=== PATIENT | female | born 1960 | race Caucasian/White ===

== ENCOUNTER → 2019-09-21 13:18 | Outpatient (BNVA) | payer BC, SELFPAY | PROVIDERS: Family Provider Nurse Practitioner Family; PCP Family Medicine; Visit Provider Nurse Practitioner Family | DX: E78.2 Mixed hyperlipidemia (principal); R07.9 Chest pain, unspecified; I10 Essential (primary) hypertension; E03.9 Hypothyroidism, unspecified; E11.9 Type 2 diabetes mellitus without complications; E87.6 Hypokalemia | CPT/HCPCS: 80053; 80061; 83036; 84443; 85025 ==

== ENCOUNTER → 2019-09-30 15:00 | Outpatient (BNVA) | payer BC, SELFPAY | PROVIDERS: Family Provider Nurse Practitioner Family; PCP Family Medicine; Visit Provider Nurse Practitioner Family | DX: J06.9 Acute upper respiratory infection, unspecified (principal); B97.89 Other viral agents as the cause of diseases classified elsewhere; R68.89 Other general symptoms and signs | CPT/HCPCS: 87804 ==

== ENCOUNTER 2019-10-06 09:21 | Outpatient (CLI) | payer BC, SELFPAY ==
[2019-10-06 09:51] VITALS: BP 152/75; PULSE 98
--- NOTE | 2019-10-06 09:51 | ECG_ITS ---
NAME OF STUDY: TREADMILL STRESS TEST INDICATION: Chest Pain, PROCEDURE: At the baseline, the patient's blood pressure was 127/83 with a heart rate of 87/min. The baseline electrocardiogram showed normal sinus rhythm with normal ST-Ts.. The patient exercised for 9 minutes and 38 seconds on a standard Tien protocol. Patient attained a maximum heart rate of 138 beats per minute( 86 % of the maximum predicted heart rate) with a blood pressure at the peak exercise of 169/79 mm Hg. The EKG at the peak exercise revealed no significant changes. Patient did not have any chest pain or any significant cardiac arrhythmias with the exercise During the recovery phase, there were no new changes. Blood pressure at the end of the recovery phase was 152/75 mm Hg with a heart rate of 96 per minute. CONCLUSION: 1. No significant EKG changes with the treadmill exercise 2. No exercise-induced chest pain or cardiac arrhythmia 3. Fair exercise tolerance, attained a maximum of 13.5 METs Electronically Signed On 10-06-2019 22:21:24 ENGLISH LANGUAGE LEARNER TEACHER by Emili Kiser M.D. [id number]
[2019-10-06 09:53] VITALS: BMI 27.0
== END 2019-10-06 09:22 | disposition home or self-care (01) ==
LOC: CDL 09:24
PROVIDERS: Family Provider Nurse Practitioner Family; PCP Nurse Practitioner Family; Visit Provider Nurse Practitioner Family
DX: R07.9 Chest pain, unspecified (principal)
CPT/HCPCS: 93017

== ENCOUNTER → 2019-12-17 10:15 | Outpatient (BNVA) | payer BC, SELFPAY | PROVIDERS: Family Provider Nurse Practitioner Family; PCP Nurse Practitioner Family; Visit Provider Nurse Practitioner Family | DX: N39.0 Urinary tract infection, site not specified (principal); E11.9 Type 2 diabetes mellitus without complications; E03.9 Hypothyroidism, unspecified; R30.0 Dysuria; E87.6 Hypokalemia; I10 Essential (primary) hypertension; E78.2 Mixed hyperlipidemia; B37.3 Candidiasis of vulva and vagina | CPT/HCPCS: 80053; 80061; 81003; 83036; 84443; 85025 ==

== ENCOUNTER → 2019-12-29 10:38 | Outpatient (BNVA) | payer BC, SELFPAY | PROVIDERS: Family Provider Nurse Practitioner Family; PCP Nurse Practitioner Family; Visit Provider Nurse Practitioner Family | DX: N39.0 Urinary tract infection, site not specified (principal); R30.0 Dysuria | CPT/HCPCS: 81000 ==

== ENCOUNTER → 2020-05-05 16:14 | Outpatient (BNVA) | payer BC, SELFPAY | PROVIDERS: Family Provider Nurse Practitioner Family; PCP Nurse Practitioner Family; Visit Provider Nurse Practitioner Family | DX: N39.0 Urinary tract infection, site not specified (principal); H92.02 Otalgia, left ear | CPT/HCPCS: 81000 ==

== ENCOUNTER → 2020-06-01 15:30 | Outpatient (BNVA) | payer BC, SELFPAY | PROVIDERS: Family Provider Nurse Practitioner Family; PCP Nurse Practitioner Family; Visit Provider Nurse Practitioner Family | DX: E11.9 Type 2 diabetes mellitus without complications (principal); E03.9 Hypothyroidism, unspecified; Z12.31 Encounter for screening mammogram for malignant neoplasm of breast | CPT/HCPCS: 80053; 80061; 82043; 83036; 84443; 85025 ==

== ENCOUNTER → 2020-06-20 13:53 | Outpatient (BNVA) | payer BC, SELFPAY | PROVIDERS: Family Provider Nurse Practitioner Family; PCP Nurse Practitioner Family; Visit Provider Nurse Practitioner Family | DX: Z20.828 Contact with and (suspected) exposure to other viral communicable diseases (principal) | CPT/HCPCS: 87635 ==

== ENCOUNTER 2020-07-24 14:41 | Emergency (ER) | payer BC, SELFPAY ==
[2020-07-24 15:17] VITALS: BP 132/80; PULSE 71; RESP 16; TEMP 36.3; O2SAT 97; BMI 25.4
--- NOTE | 2020-07-24 15:32 | CTR_ITS ---
PROCEDURE INFORMATION: Exam: CT Abdomen And Pelvis With Contrast Exam date and time: 07/24/2020 3:55 PM Age: 59 years old Clinical indication: Prior surgery; Surgery date: 6+ months; Surgery type: Gb, hyst; Patient HX: C/O tarry stool and abd cramping; Additional info: Abd pain TECHNIQUE: Imaging protocol: Computed tomography of the abdomen and pelvis with intravenous contrast. Radiation optimization: All CT scans at this facility use at least one of these dose optimization techniques: automated exposure control; mA and/or kV adjustment per patient size (includes targeted exams where dose is matched to clinical indication); or iterative reconstruction. Contrast material: OMNI 300; Contrast volume: 95 ml; Contrast route: INTRAVENOUS (IV); COMPARISON: CT Chest/Abdomen/Pelvis w IV* 10/04/2018 3:12 PM RADIATION DOSE METRICS: Total DLP (mGy-cm): 389.29 FINDINGS: Liver: Normal. No mass. Gallbladder and bile ducts: Cholecystectomy. The bile ducts are normal. Pancreas: Normal. No ductal dilation. Spleen: Normal. No splenomegaly. Adrenal glands: Normal. No mass. Kidneys and ureters: Subcentimeter hypodensities in both kidneys are too small to characterize but most likely are cysts. No follow-up is recommended. No calculus or hydronephrosis. Stomach and bowel: The transverse and distal colon are decompressed. No visible wall thickening. The stomach and small bowel are unremarkable. Appendix: The appendix is not visualized. Intraperitoneal space: Unremarkable. No free air. No significant fluid collection. Vasculature: Unremarkable. No abdominal aortic aneurysm. Lymph nodes: Unremarkable. No enlarged lymph nodes. Urinary bladder: Unremarkable as visualized. Reproductive: The uterus and ovaries are absent. Bones/joints: Chronic bilateral L5 pars fractures with grade 1 anterior subluxation and disc space narrowing. No compression fracture. Soft tissues: Unremarkable. CT/CT abdomen pelvis w con* [id number] IMPRESSION: 1. No acute abnormality identified in the abdomen or pelvis. COMMENTS: Consistent with the [employer]'s Incidental Findings Committee white paper (J Am Pete Radiol 2018): Any incidental renal lesion less than 1 cm or classified as too small to characterize, or any incidental cystic renal lesion characterized as simple-appearing, is likely benign. No follow-up imaging is recommended for these lesions per consensus recommendations based on imaging criteria. Radiation Dose CTDIVOL = (mGy): DLP = 389.29 (mGy-cm)
--- NOTE | 2020-07-24 15:37 | ED_ITS ---
HPI - GI Bleed General: Chief complaint: GI Bleed Stated complaint: BLACK STOOL, LOW BP, LIGHT HEADED Time Seen by Provider: 07/24/20 15:26 Source: patient Mode of arrival: ambulatory Limitations: no limitations History of Present Illness: HPI Narrative: 59-year-old female states 3 hours ago she had a large black tarry stool was concerned she is having a GI bleed. States she took her blood pressure was 106 systolic she had some slight lightheadedness. She had diffuse abdominal pain is been cramping in nature she rates a 5 out of 10. She denies any vomiting or diarrhea. Associated symptoms: Denies abdominal pain, chills, easy bruising, fever(s), headache(s), nausea, rash or vomiting Review of Systems Const: Denies: fever(s), chills, body aches or change in appetite Eyes: Denies: blurry vision or eye discomfort ENMT: Denies: throat pain or dental pain Card: Denies: chest pain Resp: Denies: dyspnea GI: Reports: melena; Denies: abdominal pain, nausea, vomiting or diarrhea : Denies: dysuria Musc: Denies: neck pain or back pain Skin/Breast: Denies: rash Neuro: Denies: headache(s) Psych: Denies: depression Greg/Lymph: Denies: easy bruising All/Imm: Denies: urticaria PFSH ED PFSH: Medical History Acquired hypothyroidism Breast density Diabetes Diabetes mellitus treated with oral medication Essential hypertension Family history of heart disease Hyperlipidemia Hypertension Hypothyroid Microcytosis Mixed hyperlipidemia Multiple gastric ulcers Peptic ulcer Small vessel disease Surgical History History of cholecystectomy History of hysterectomy History of tubal ligation Family History Mother Diabetes Heart disease Father Diabetes Heart disease Social History Smoking and tobacco status: former smoker Quit status (tobacco): has quit using tobacco Year quit tobacco: 1999 Former quit date comment: smoked ppd x 5 Second hand smoke exposure: No Alcohol intake: former Lives independently: Yes Household members: spouse Marital status: service: No Current occupational status: employed Current occupation: [employer] History of recent travel: No Current gender identity: Female Physical Exam Const: COMMON NORMALS: no acute distress, patient oriented x3 and healthy appearing HENMT: COMMON NORMALS: normocephalic and atraumatic HEAD & SCALP: normocephalic and atraumatic Eye: COMMON NORMALS: Equal, round and reactive pupils present and EOMs intact bilaterally PUPIL: Yes Equal, round and reactive pupils present Neck/C-Spine: COMMON NORMALS: full ROM and supple Chest: COMMONS NORMALS: normal inspection of the chest and normal palpation of entire chest wall Resp: COMMON NORMALS: normal respiratory effort, No retractions, No use of accessory muscles and clear to auscultation bilaterally AUSCULTATION: clear to auscultation bilaterally Cardio: COMMON NORMALS: regular rate, regular rhythm and No murmurs present (Cardio) RATE: regular rate RHYTHM: regular rhythm GI: COMMON NORMALS: Normal to inspection, nondistended, normoactive bowel sounds present, Soft to palpation, non-tender and no masses PALPATION: Yes Soft to palpation RECTAL EXAM: No heme positive stool OTHER: Rectal exam negative with Hemoccult negative stool Extremity: COMMON NORMALS: normal to inspection and full ROM Neuro: COMMON NORMALS: patient oriented x3, moves all extremities and no focal motor deficits Psych: COMMON NORMALS: mental status grossly normal, Normal thought process present and cooperative THOUGHT PROCESS: Normal thought process present Skin: COMMON NORMALS: no rashes or lesions noted and no wounds GENERAL SKIN EXAM: no rashes or lesions noted Course Vital Signs: Vital signs: Vital Signs Temperature 97.4 F L 07/24/20 15:17 Pulse Rate 70 07/24/20 17:23 Respiratory Rate 15 07/24/20 17:23 Blood Pressure 116/86 07/24/20 17:23 Pulse Oximetry 99 07/24/20 17:23 MDM - GI Bleed MDM Narrative: Medical decision making narrative: Patient presents here with a possible GI bleed. Patient's vital signs here been normal and CT scans normal and her hemoglobin here is normal as well. Her initial rectal exam here showed brown stool that is Hemoccult negative. While patient was here she had a bowel movement and states she thought it was dark again I did another rectal exam immediately after that showed brown stool again and was Hemoccult negative again. She had flushed her about down the stool so was unable to do a Hemoccult on that. She has been stable while here. She is not been symptomatic when she stands up. Had a long discussion with her and I feel she is stable for discharge. She is to follow-up with PCP in 2 to 4 days. I informed her if she has any more bloody stools or feels lightheaded she is to return immediately. She understands and agrees to this plan. Lab Data: Labs: Lab Results 07/24/20 07/24/20 07/24/20 Range/Units 15:37 15:37 15:37 WBC 7.8 (4.0-10.0) 10^3/ uL RBC 5.22 (4.1-5.3) 10^6/u L Hgb 13.3 (11.5-15.3) g/dL Hct 42.8 (37.0-47.0) % MCV 82.0 (81-99) fL MCH 25.5 L (28.0-34.0) pg MCHC 31.1 (30.0-36.0) g/dL RDW 14.8 (12.1-15.1) % Plt Count 292 (130-400) 10^3/c mm MPV 10.4 (7.4-10.4) fL Neut % (Auto) 66.9 % Lymph % (Auto) 27.9 % Burleigh % (Auto) 4.6 % Eos % (Auto) 0.0 % Baso % (Auto) 0.3 % Neut # (Auto) 5.20 (1.8-7.7) 10^3/u L Lymph # (Auto) 2.2 (0.8-4.8) 10^3/u L Burleigh # (Auto) 0.4 (0.2-0.9) 10^3/u L Eos # (Auto) 0.0 (0.0-0.8) 10^3/u L Baso # (Auto) 0.0 (0.0-0.1) 10^3/u L Nucleated RBC % (a uto) 0 % Nucleated RBCs # 0.0 /100WBC PT 12.90 (12.1-14.9) SECO NDS INR 0.94 (0.8-1.2) Sodium 141 (136-145) mmol/L Potassium 3.9 (3.5-5.1) mmol/L Chloride 103 (98-107) mmol/L Carbon Dioxide 27 (22-29) mmol/L Anion Gap 14.9 (5-19) BUN 11 (8-23) mg/dL Creatinine 0.5 (0.5-0.9) mg/dL GFR Calculation 125.9 (90-130) mL/min Glucose 105 (65-115) mg/dL Calculated Osmolal ity 292 (285-295) mOsm/k g Calcium 9.8 (8.5-10.5) mg/dL Total Bilirubin 0.3 (0.15-1.2) mg/dL AST 27 (0-32) U/L ALT 40 H (0-33) U/L Alkaline Phosphata se 92 (35-105) IU/L Total Protein 7.2 (6.6-8.7) g/dL Albumin 4.6 (3.5-5.2) g/dL Globulin 2.6 (1.3-4.6) g/dL Urine Color (Yellow) Urine Appearance (CLEAR) Urine pH (5-7) Ur Specific Gravit y (1.005-1.030) Urine Protein (Negative) Urine Glucose (UA) (Normal) Urine Ketones (Negative) Urine Blood (Negative) Urine Nitrate (Negative) Urine Bilirubin (Negative) Urine Urobilinogen (Negative) mg/dL Ur Leukocyte Renetta ase (Negative) 07/24/20 Range/Units 16:06 WBC (4.0-10.0) 10^3/ uL RBC (4.1-5.3) 10^6/u L Hgb (11.5-15.3) g/dL Hct (37.0-47.0) % MCV (81-99) fL MCH (28.0-34.0) pg MCHC (30.0-36.0) g/dL RDW (12.1-15.1) % Plt Count (130-400) 10^3/c mm MPV (7.4-10.4) fL Neut % (Auto) % Lymph % (Auto) % Burleigh % (Auto) % Eos % (Auto) % Baso % (Auto) % Neut # (Auto) (1.8-7.7) 10^3/u L Lymph # (Auto) (0.8-4.8) 10^3/u L Burleigh # (Auto) (0.2-0.9) 10^3/u L Eos # (Auto) (0.0-0.8) 10^3/u L Baso # (Auto) (0.0-0.1) 10^3/u L Nucleated RBC % (a uto) % Nucleated RBCs # /100WBC PT (12.1-14.9) SECO NDS INR (0.8-1.2) Sodium (136-145) mmol/L Potassium (3.5-5.1) mmol/L Chloride (98-107) mmol/L Carbon Dioxide (22-29) mmol/L Anion Gap (5-19) BUN (8-23) mg/dL Creatinine (0.5-0.9) mg/dL GFR Calculation (90-130) mL/min Glucose (65-115) mg/dL Calculated Osmolal ity (285-295) mOsm/k g Calcium (8.5-10.5) mg/dL Total Bilirubin (0.15-1.2) mg/dL AST (0-32) U/L ALT (0-33) U/L Alkaline Phosphata se (35-105) IU/L Total Protein (6.6-8.7) g/dL Albumin (3.5-5.2) g/dL Globulin (1.3-4.6) g/dL Urine Color Yellow (Yellow) Urine Appearance Clear (CLEAR) Urine pH 5 (5-7) Ur Specific Gravit y 1.015 (1.005-1.030) Urine Protein Neg (Negative) Urine Glucose (UA) Norm (Normal) Urine Ketones Negative (Negative) Urine Blood Neg (Negative) Urine Nitrate Negative (Negative) Urine Bilirubin Neg (Negative) Urine Urobilinogen Neg (Negative) mg/dL Ur Leukocyte Renetta ase Negative (Negative) Imaging Data^: CT Abd/Pel: Radiologist's impression: [address] [address] [address] Scan Report Signed Patient: Lou Garcia Unit #: [id number] : 1960 Age/Sex: 59 / F ADM Date: 07/24/20 Loc: ER Room/Bed: Attending Dr: Ordering Provider/Ordering MD: Aidan Quarles MD Date of Service: 07/24/20 Procedure(s): CT abdomen pelvis w con* [id number] Accession Number(s): [id number] Report Number: [id number] PROCEDURE INFORMATION: Exam: CT Abdomen And Pelvis With Contrast Exam date and time: 07/24/2020 3:55 PM Age: 59 years old Clinical indication: Prior surgery; Surgery date: 6+ months; Surgery type: Gb, hyst; Patient HX: C/O tarry stool and abd cramping; Additional info: Abd pain TECHNIQUE: Imaging protocol: Computed tomography of the abdomen and pelvis with intravenous contrast. Radiation optimization: All CT scans at this facility use at least one of these dose optimization techniques: automated exposure control; mA and/or kV adjustment per patient size (includes targeted exams where dose is matched to clinical indication); or iterative reconstruction. Contrast material: OMNI 300; Contrast volume: 95 ml; Contrast route: INTRAVENOUS (IV); COMPARISON: CT Chest/Abdomen/Pelvis w IV* 10/04/2018 3:12 PM RADIATION DOSE METRICS: Total DLP (mGy-cm): 389.29 FINDINGS: Liver: Normal. No mass. Gallbladder and bile ducts: Cholecystectomy. The bile ducts are normal. Pancreas: Normal. No ductal dilation. Spleen: Normal. No splenomegaly. Adrenal glands: Normal. No mass. Kidneys and ureters: Subcentimeter hypodensities in both kidneys are too small to characterize but most likely are cysts. No follow-up is recommended. No calculus or hydronephrosis. Stomach and bowel: The transverse and distal colon are decompressed. No visible wall thickening. The stomach and small bowel are unremarkable. Appendix: The appendix is not visualized. Intraperitoneal space: Unremarkable. No free air. No significant fluid collection. Vasculature: Unremarkable. No abdominal aortic aneurysm. Lymph nodes: Unremarkable. No enlarged lymph nodes. Urinary bladder: Unremarkable as visualized. Reproductive: The uterus and ovaries are absent. Bones/joints: Chronic bilateral L5 pars fractures with grade 1 anterior subluxation and disc space narrowing. No compression fracture. Soft tissues: Unremarkable. CT/CT abdomen pelvis w con* [id number] IMPRESSION: 1. No acute abnormality identified in the abdomen or pelvis. Discharge Plan Discharge Patient Disposition: Home Clinical Impression: GI bleed Qualifiers: GI bleed type/associated pathology: unspecified gastrointestinal hemorrhage type Qualified Code(s): K92.2 - Gastrointestinal hemorrhage, unspecified Condition: Stable Prescriptions: No Action metformin 1,000 mg tablet 1,000 mg PO BID Qty: 180 RF: 1 aspirin [Adult Aspirin Regimen] 81 mg tablet,delayed release (DR/EC) 81 mg PO DAILY RF: 0 omega-3 fatty acids [Fish Oil Concentrate] 1,000 mg capsule 1,000 mg PO DAILY RF: 0 epinephrine [EpiPen] 0.3 mg/0.3 mL auto-injector 0.3 mg IM ONCE PRN (Reason: anaphylaxis) Qty: 2 RF: 1 (DME) blood-glucose meter Kit See Rx Instructions .ROUTE .MEDSUPPLY Qty: 1 RF: 0 (DME) Blood Glucose Test Strip See Rx Instructions .ROUTE .MEDSUPPLY Qty: 100 RF: 4 lisinopril 20 mg tablet See Rx Instructions .ROUTE .COMPLEX Qty: 90 RF: 1 potassium chloride 20 mEq tablet,ER particles/crystals See Rx Instructions .ROUTE .COMPLEX Qty: 90 RF: 1 atorvastatin 10 mg tablet 10 mg PO DAILY Qty: 90 RF: 1 amlodipine 10 mg tablet 10 mg PO DAILY Qty: 90 RF: 1 levothyroxine 100 mcg tablet See Rx Instructions .ROUTE .COMPLEX Qty: 90 RF: 1 glyburide 5 mg tablet 5 mg PO BID 90 Days Qty: 180 RF: 1 Discharge Orders: Discharge Order (Routine); Ordered 07/24/20 Ordered By: Aidan Quarles Referrals: Elisa Swan APN [Family Provider] - Kristina Colmenares FNP [Primary Care Provider] - Discharge Diet: Advance as tolerated Discharge Activity: Resume usual activity Patient Instructions: Gastrointestinal Bleeding (ED) Discharge Date/Time: 07/24/20 17:23 Coding Level of Care Code ED Restrictive Preparation Operator for Abdelrahman Fwd Exam Comprehensive
[2020-07-24 15:43] LABS: Basophils % 0.3 %; Hematocrit 42.8 % (37.0-47.0); Hemoglobin 13.3 g/dL (11.5-15.3); Lymphocytes # 2.2 10^3/uL (0.8-4.8); Lymphocytes % 27.9 %; Mean Corpuscular HGB Conc 31.1 g/dL (30.0-36.0); Mean Corpuscular Hemoglobin 25.5 pg (28.0-34.0); Mean Platelet Volume 10.4 fL (7.4-10.4); Monocytes # 0.4 10^3/uL (0.2-0.9); Monocytes % 4.6 %; Neutrophils % 66.9 %; Nucleated Red Blood Cells % 0 %; Platelet Count 292 10^3/cmm (130-400); Red Blood Count 5.22 10^6/uL (4.1-5.3); Red Cell Distribution Width 14.8 % (12.1-15.1); White Blood Count 7.8 10^3/uL (4.0-10.0)
[2020-07-24 16:01] LABS: Alanine Aminotransferase 40 U/L (0-33); Albumin Level 4.6 g/dL (3.5-5.2); Alkaline Phosphatase 92 IU/L (35-105); Anion Gap 14.9 (5-19); Aspartate Amino Transferase 27 U/L (0-32); Blood Urea Nitrogen 11 mg/dL (8-23); Calcium 9.8 mg/dL (8.5-10.5); Carbon Dioxide 27 mmol/L (22-29); Chloride 103 mmol/L (98-107); Creatinine Clr Calc Pharmacy 107.9557; Globulin 2.6 g/dL (1.3-4.6); Glomerular Filtration Rate 125.9 mL/min (90-130); Glucose 105 mg/dL (65-115); Osmolality Calculated 292 mOsm/kg (285-295); Potassium 3.9 mmol/L (3.5-5.1); Sodium 141 mmol/L (136-145); Total Bilirubin 0.3 mg/dL (0.15-1.2); Total Protein 7.2 g/dL (6.6-8.7)
--- NOTE | 2020-07-24 16:03 | PC.NURSE ---
Patient to restroom. Patient will attempt to collect urine.
[2020-07-24 16:31] LABS: Add Urine Microscopic? NO
[2020-07-24] MEDS: iohexol 300 mg/mL 100 mL Btl IV (16:46)
[2020-07-24 16:49] LABS: INR 0.94 (0.8-1.2)
[2020-07-24 16:53] LABS: Bilirubin Urine Neg (Negative); Blood Urine Neg (Negative); Glucose Urine UA Norm (Normal); Ketones Urine Negative (Negative); Leukocyte Esterase Urine Negative (Negative); Nitrate Urine Negative (Negative); Protein Urine Neg (Negative); Specific Gravity, Urine 1.015 (1.005-1.030); Urine Appearance Clear (CLEAR); Urine Color Yellow (Yellow); Urobilinogen Urine Neg (Negative); pH Urine 5 (5-7)
--- NOTE | 2020-07-24 17:04 | PC.NURSE ---
Read and agree with assessment.
[2020-07-24 17:23] VITALS: BP 116/86; PULSE 70; RESP 15; O2SAT 99
== END 2020-07-24 17:23 | disposition home or self-care (01) ==
PROVIDERS: Emergency Provider Emergency Medicine; Family Provider Nurse Practitioner Family; PCP Nurse Practitioner Family
DX: K92.2 Gastrointestinal hemorrhage, unspecified (principal); Z79.82 Long term (current) use of aspirin; E11.9 Type 2 diabetes mellitus without complications; I10 Essential (primary) hypertension; E78.2 Mixed hyperlipidemia; Z87.891 Personal history of nicotine dependence
CPT/HCPCS: 12345; 74177; 80053; 81003; 85025; 85610; 99283; Q9967

== ENCOUNTER 2020-08-10 14:44 | Outpatient (CLI) | payer BC, SELFPAY ==
--- NOTE | 2020-08-10 15:00 | MM_ITS ---
WS: [id number] SCREENING DIGITAL MAMMOGRAM WITH CAD HISTORY: screening mammo COMPARISON: 10/31/2018, 04/24/2017 and 04/03/2017 Bilateral CC and MLO views submitted. Computer aided detection analyzed. Breast composition: There are scattered areas of fibroglandular density. Ovoid irregular shaped 7 millimeter density in the central RIGHT breast. I suspect this is at 12:00. Additional imaging is necessary. Otherwise no interval suspicious changes. MM/[place] [id number] IMPRESSION: BI-RADS: 0-Incomplete: Need additional imaging evaluation FOLLOW UP: Need Additional Imaging RIGHT breast: Spot compression views (CC and MLO). True ML. Ultrasound to follo w if abnormality persists.
== END 2020-08-10 14:45 | disposition home or self-care (01) ==
LOC: RADSHAW 14:48
PROVIDERS: PCP Nurse Practitioner Family; Visit Provider Nurse Practitioner Family
DX: Z12.31 Encounter for screening mammogram for malignant neoplasm of breast (principal); N64.89 Other specified disorders of breast
CPT/HCPCS: 77067

== ENCOUNTER 2020-08-23 10:42 | Outpatient (CLI) | payer BC, SELFPAY ==
--- NOTE | 2020-08-23 11:00 | MM_ITS ---
WS: [id number] ADDITIONAL VIEWS RIGHT BREAST RIGHT breast ultrasound, limited HISTORY: R92.8 - Other abnormal and inconclusive findings on diagnostic imaging of breast COMPARISON: 08/10/2020, 10/31/2018, 04/03/2017 Compression views right CC and MLO projection. True ML also submitted. 8 mm nodule persists central to the nipple on the CC projection. Not visualized on the RIGHT MLO. Thi s may be superimposed fibroglandular densities. RIGHT breast ultrasound, limited. There is no detectable abnormality at 12:00 corresponds to a mammographic abnormality. There is a sma ll cluster of cysts or lymph nodes at 7:00 in the RIGHT breast. MM/[place] [id number] IMPRESSION: BI-RADS: 3-Probably Benign FOLLOW-UP: 6 Month Follow-up Recommend diagnostic RIGHT mammogram follow-up in 6 months. The asymmetry in th e central RIGHT breast needs further evaluation. As this cannot be identified b y ultrasound or definitely on the lateral projection 6 month follow-up is recom mended.
--- NOTE | 2020-08-23 11:30 | US_ITS ---
WS: [id number] ADDITIONAL VIEWS RIGHT BREAST RIGHT breast ultrasound, limited HISTORY: R92.8 - Other abnormal and inconclusive findings on diagnostic imaging of breast COMPARISON: 08/10/2020, 10/31/2018, 04/03/2017 Compression views right CC and MLO projection. True ML also submitted. 8 mm nodule persists central to the nipple on the CC projection. Not visualized on the RIGHT MLO. Thi s may be superimposed fibroglandular densities. RIGHT breast ultrasound, limited. There is no detectable abnormality at 12:00 corresponds to a mammographic abnormality. There is a sma ll cluster of cysts or lymph nodes at 7:00 in the RIGHT breast. US/US breast RT limited* [id number] IMPRESSION: BI-RADS: 3-Probably Benign FOLLOW-UP: 6 Month Follow-up Recommend diagnostic RIGHT mammogram follow-up in 6 months. The asymmetry in th e central RIGHT breast needs further evaluation. As this cannot be identified b y ultrasound or definitely on the lateral projection 6 month follow-up is recom mended.
== END 2020-08-23 10:43 | disposition home or self-care (01) ==
LOC: RADSHAW 10:45
PROVIDERS: PCP Nurse Practitioner Family; Visit Provider Nurse Practitioner Family
DX: R92.8 Other abnormal and inconclusive findings on diagnostic imaging of breast (principal); N64.89 Other specified disorders of breast
CPT/HCPCS: 76642; 77065

== ENCOUNTER → 2020-12-14 16:46 | Outpatient (BNVA) | payer BC, SELFPAY | PROVIDERS: PCP Nurse Practitioner Family; Visit Provider Nurse Practitioner Family | DX: I10 Essential (primary) hypertension (principal); E11.9 Type 2 diabetes mellitus without complications; Z91.030 Bee allergy status; E03.9 Hypothyroidism, unspecified; E87.6 Hypokalemia; E78.2 Mixed hyperlipidemia | CPT/HCPCS: 80053; 80061; 83036; 84443; 85025 ==

== ENCOUNTER → 2021-04-24 17:03 | Outpatient (BNVA) | payer BC, SELFPAY | PROVIDERS: PCP Nurse Practitioner Family; Visit Provider Family Medicine | DX: R10.30 Lower abdominal pain, unspecified (principal); N39.0 Urinary tract infection, site not specified; R31.9 Hematuria, unspecified; R10.9 Unspecified abdominal pain | CPT/HCPCS: 81003 ==

== ENCOUNTER → 2021-07-04 11:14 | Outpatient (BNVA) | payer BC, SELFPAY | PROVIDERS: PCP Nurse Practitioner Family; Visit Provider Nurse Practitioner Family | DX: I10 Essential (primary) hypertension (principal); E11.9 Type 2 diabetes mellitus without complications; E03.9 Hypothyroidism, unspecified; E87.6 Hypokalemia; E78.2 Mixed hyperlipidemia | CPT/HCPCS: 80053; 80061; 82043; 83036; 84443; 85025 ==

== ENCOUNTER → 2021-08-17 14:01 | Outpatient (BNVA) | payer BC, SELFPAY | PROVIDERS: PCP Nurse Practitioner Family; Visit Provider Nurse Practitioner Family | DX: N39.0 Urinary tract infection, site not specified (principal); R31.9 Hematuria, unspecified; B37.3 Candidiasis of vulva and vagina | CPT/HCPCS: 81003 ==

== ENCOUNTER 2021-09-26 15:13 | Outpatient (REF) | payer OTHER, SELFPAY ==
[2021-09-26 15:46] LABS: Hepatitis B Surface AB 135.1 (11.5-1000); Rubella IgG 171.9 IU/mL (0.0-10.0)
[2021-09-27 12:38] LABS: Rubeola Antibody IGG >300.00 AU/mL
[2021-09-28 13:47] LABS: Quantiferon Mitogen >10.00 IU/mL; Quantiferon Nil 0.04 IU/mL; Quantiferon Plus TB1 0.95 IU/mL; Quantiferon Plus TB2 0.39 IU/mL; Quantiferon TB Gold POSITIVE (NEGATIVE)
== END 2021-09-26 15:14 | disposition home or self-care (01) ==
LOC: LAB 15:13
DX: Z01.89 Encounter for other specified special examinations (principal)
CPT/HCPCS: 86480; 86706; 86735; 86762; 86765; 86787

== ENCOUNTER 2021-11-01 07:07 | Outpatient (CLI) | payer OTHER, SELFPAY ==
--- NOTE | 2021-11-01 07:14 | XR_ITS ---
WS: [id number] CHEST 2 VIEWS HISTORY: POSITIVE TB TEST COMPARISON: 08/22/2019 Lungs: Similar appearance to the lungs as the prior study of 08/22/2019. No pneumonia. Normal vasculat ure. No effusion. Cardiac size: Normal. Mediastinum/Aorta: Mild atherosclerosis aorta. Bones: Normal. Surgical clips are noted overlying the RIGHT abdomen. XR/XR chest 2V* [id number] IMPRESSION: 1. No acute cardiopulmonary disease. Stable chest radiograph since 08/22/2019. 2. Mild atherosclerosis aorta.
== END 2021-11-01 07:08 | disposition home or self-care (01) ==
LOC: RAD 07:09
PROVIDERS: PCP Nurse Practitioner Family; Visit Provider Family Medicine
DX: R76.12 Nonspecific reaction to cell mediated immunity measurement of gamma interferon antigen response without active tuberculosis (principal); I70.0 Atherosclerosis of aorta
CPT/HCPCS: 71046

== ENCOUNTER → 2021-11-28 11:33 | Outpatient (BNVA) | payer OTHER, SELFPAY | PROVIDERS: PCP Nurse Practitioner Family; Visit Provider Family Medicine | DX: E03.9 Hypothyroidism, unspecified (principal); E78.2 Mixed hyperlipidemia; I10 Essential (primary) hypertension; E11.9 Type 2 diabetes mellitus without complications; L30.9 Dermatitis, unspecified | CPT/HCPCS: 80053; 80061; 83036; 84443; 85025 ==

== ENCOUNTER → 2022-04-24 08:59 | Outpatient (BNVA) | payer OTHER, SELFPAY | PROVIDERS: PCP Family Medicine Adult Medicine; Visit Provider Family Medicine Adult Medicine | DX: Z00.00 Encounter for general adult medical examination without abnormal findings (principal); N39.0 Urinary tract infection, site not specified; Z23 Encounter for immunization | CPT/HCPCS: 81000 ==

== ENCOUNTER → 2022-05-07 12:14 | Outpatient (BNVA) | payer OTHER, SELFPAY | PROVIDERS: PCP Family Medicine Adult Medicine; Visit Provider Registered Nurse Neonatal Intensive Care | DX: N39.0 Urinary tract infection, site not specified (principal); R30.0 Dysuria; R39.9 Unspecified symptoms and signs involving the genitourinary system; B37.2 Candidiasis of skin and nail | CPT/HCPCS: 81000; 87077; 87086; 87184 ==

== ENCOUNTER → 2022-05-21 13:45 | Outpatient (BNVA) | payer OTHER, SELFPAY | PROVIDERS: PCP Family Medicine Adult Medicine; Visit Provider Registered Nurse Neonatal Intensive Care | DX: N39.0 Urinary tract infection, site not specified (principal); R35.0 Frequency of micturition | CPT/HCPCS: 81000 ==

== ENCOUNTER → 2022-05-29 08:55 | Outpatient (BNVA) | payer SELFPAY | PROVIDERS: PCP Family Medicine Adult Medicine; Visit Provider Dermatology | DX: Z01.89 Encounter for other specified special examinations (principal) ==

== ENCOUNTER 2022-08-23 09:13 | Outpatient (CLI) | payer OTHER, SELFPAY ==
--- NOTE | 2022-08-23 09:27 | MM_ITS ---
WS: [id number] SCREENING DIGITAL BREAST TOMOSYNTHESIS MAMMOGRAM WITH CAD HISTORY: Screening exam. COMPARISON: 08/10/2020, 10/31/2018 Bilateral CC and MLO with tomosynthesis and synthetic mammography submitted. Computer aided detection analyzed. Breast composition: There are scattered areas of fibroglandular density. 5 mm hyperdense nodule in the posterior medial inferior LEFT breast. The remaining asymmetries are st able. No grouping of calcification. MM/[place] [id number] IMPRESSION: BI-RADS: 0-Incomplete: Need additional imaging evaluation FOLLOW UP: Need Additional Imaging LEFT breast: Spot compression views (CC and MLO). True ML. Ultrasound to follow if abnormality persists.
== END 2022-08-23 09:14 | disposition home or self-care (01) ==
LOC: RAD 09:15
PROVIDERS: PCP Family Medicine Adult Medicine; Visit Provider Family Medicine Adult Medicine
DX: Z12.31 Encounter for screening mammogram for malignant neoplasm of breast (principal)
CPT/HCPCS: 77063; 77067

== ENCOUNTER → 2022-08-28 09:34 | Outpatient (BNVA) | payer SELFPAY | PROVIDERS: PCP Family Medicine Adult Medicine; Visit Provider Dermatology | DX: Z01.89 Encounter for other specified special examinations (principal) ==

== ENCOUNTER 2022-08-29 18:27 | Emergency (ER) | payer OTHER, SELFPAY ==
--- NOTE | 2022-08-29 18:28 | XRR_ITS ---
PROCEDURE INFORMATION: Exam: XR Chest Exam date and time: 08/29/2022 6:34 PM Age: 62 years old Clinical indication: Shortness of breath; Additional info: SOB TECHNIQUE: Imaging protocol: Radiologic exam of the chest. Views: 1 view. COMPARISON: CR XR chest 2V* [id number] 11/01/2021 7:27 AM FINDINGS: Lungs: Shallow inspiration with mild pulmonary parenchymal crowding. No consolidation. Pleural spaces: Unremarkable. No pleural effusion. No pneumothorax. Heart/Mediastinum: Unremarkable. No cardiomegaly. Bones/joints: Unremarkable. Intraperitoneal space: Clips in the right upper abdomen. XR/XR chest 1V portable [id number] IMPRESSION: No acute findings.
--- NOTE | 2022-08-29 18:36 | ECG_ITS ---
[facility] Test Date: 2022-08-29 Pat Name: Lou Garcia Department: Room: Gender: Female Customs Inspector: : 1960 Requested By: Aidan Quarles Order Number: [id number] Mohit MD: Dmitry Felipe M.D. Measurements Intervals Bowden Rate: 76 P: 25 SD: 199 QRS: 22 QRSD: 102 T: 59 QT: 381 QTc: 431 Interpretive Statements SINUS RHYTHM Compared to ECG 08/22/2019 16:29:47 T-wave abnormality no longer present Electronically Signed On 08-31-2022 13:51:11 MANAGER EXPRESS by Dmitry Felipe M.D. [id number]
--- NOTE | 2022-08-29 18:36 | PC.NURSE ---
pt bgl is [address] misael holliday.
[2022-08-29 18:47] VITALS: BP 105/62; PULSE 76; RESP 15; TEMP 36.7; O2SAT 93; BMI 25.4
--- NOTE | 2022-08-29 18:49 | W.ED.SYNCOPE ---
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 She states she started to feel improved she is a diabetic and she states she has not eaten much throughout the day her blood glucose here is normal though she denies any chest pain denies any head pain. Associated symptoms: Deny abdominal pain, fever(s), headache(s) or nausea Review of Systems Const: Denies: fever(s), chills, body aches or change in appetite Eyes: Denies: blurry vision or eye discomfort ENMT: Denies: throat pain or dental pain Card: Reports: syncope Resp: Denies: dyspnea GI: Denies: abdominal pain, nausea, vomiting or diarrhea : Denies: dysuria Musc: Denies: neck pain or back pain Skin/Breast: Denies: rash Neuro: Denies: headache(s) Psych: Denies: depression Greg/Lymph: Denies: easy bruising All/Imm: Denies: urticaria PFSH ED PFSH: Medical History Allergic to bees Family history of heart disease Healthcare maintenance Hyperlipidemia Hypertension Hypothyroid Mixed hyperlipidemia Nocturnal leg cramps PUD (peptic ulcer disease) Gastric and peptic ulcer 05/05/2020. Small vessel disease Vulval candidiasis Surgical History History of cholecystectomy History of hysterectomy History of tubal ligation Family History Mother Diabetes Heart disease Father Diabetes Heart disease Social History Quit status (tobacco): has quit using tobacco Year quit tobacco: 1999 Former quit date comment: smoked ppd x 5 Second hand smoke exposure: No Alcohol intake: former Lives independently: Yes Household members: spouse Marital status: service: No Current occupational status: employed Current occupation: [employer] History of recent travel: No Current gender identity: Female Physical Exam Const: COMMON NORMALS: no acute distress, patient oriented x3 and healthy appearing HENMT: COMMON NORMALS: normocephalic and atraumatic HEAD & SCALP: normocephalic and atraumatic Eye: COMMON NORMALS: Equal, round and reactive pupils present and EOMs intact bilaterally PUPIL: Yes Equal, round and reactive pupils present Neck/C-Spine: COMMON NORMALS: full ROM and supple Chest: COMMONS NORMALS: normal inspection of the chest and normal palpation of entire chest wall Resp: COMMON NORMALS: normal respiratory effort, No retractions, No use of accessory muscles and clear to auscultation bilaterally AUSCULTATION: clear to auscultation bilaterally Cardio: COMMON NORMALS: regular rate, regular rhythm and No murmurs present (Cardio) RATE: regular rate RHYTHM: regular rhythm GI: COMMON NORMALS: Normal to inspection, nondistended, normoactive bowel sounds present, Soft to palpation, non-tender and no masses PALPATION: Yes Soft to palpation Extremity: COMMON NORMALS: normal to inspection and full ROM Neuro: COMMON NORMALS: patient oriented x3, moves all extremities and no focal motor deficits Psych: COMMON NORMALS: mental status grossly normal, Normal thought process present and cooperative THOUGHT PROCESS: Normal thought process present Skin: COMMON NORMALS: no rashes or lesions noted and no wounds GENERAL SKIN EXAM: no rashes or lesions noted Course Vital Signs: Vital signs: Vital Signs Temperature 98.1 F 08/29/22 18:47 Pulse Rate 76 08/29/22 18:56 Respiratory Rate 16 08/29/22 18:56 Blood Pressure 105/62 08/29/22 18:47 Pulse Oximetry 90 08/29/22 18:56 Oxygen Delivery Me thod 08/29/22 18:56 MDM - Syncope Medical Decision Making Patient presents here with a syncopal event likely a vagal episode. Patient is well-appearing here lab work x-ray and EKG are normal patient stable for discharge she is return if worsening she understands agrees to plan. Lab Data 08/29/22 19:00 08/29/22 19:00 Radiology Impressions Chest X-Ray 08/29/22 18:28 IMPRESSION: No acute findings. Laboratory Results WBC 14.6 10^3/uL (4.0-10.0) H 08/29/22 19:00 RBC 4.54 10^6/uL (4.1-5.3) 08/29/22 19:00 Hgb 11.7 g/dL (11.5-15.3) 08/29/22 19:00 Hct 37.0 % (37.0-47.0) 08/29/22 19:00 MCV 81.5 fl (81-99) 08/29/22 19:00 MCH 25.8 pg (28.0-34.0) L 08/29/22 19:00 MCHC 31.6 g/dL (30.0-36.0) 08/29/22 19:00 RDW 14.9 % (12.1-15.1) 08/29/22 19:00 Plt Count 384 10^3/cmm (130-400) 08/29/22 19:00 MPV 9.1 fL (7.4-10.4) 08/29/22 19:00 Neut % (Auto) 92.3 % 08/29/22 19:00 Lymph % (Auto) 4.2 % 08/29/22 19:00 Bullitt % (Auto) 3.1 % 08/29/22 19:00 Eos % (Auto) 0.0 % 08/29/22 19:00 Baso % (Auto) 0.1 % 08/29/22 19:00 Neut # (Auto) 13.51 10^3/uL (1.8-7.7) H 08/29/22 19:00 Lymph # (Auto) 0.6 10^3/uL (0.8-4.8) L 08/29/22 19:00 Bullitt # (Auto) 0.5 10^3/uL (0.2-0.9) 08/29/22 19:00 Eos # (Auto) 0.0 10^3/uL (0.0-0.8) 08/29/22 19:00 Baso # (Auto) 0.0 10^3/uL (0.0-0.1) 08/29/22 19:00 Nucleated RBC % (auto) 0 % 08/29/22 19:00 Nucleated RBCs # 0.0 /100WBC 08/29/22 19:00 Sodium 136 mmol/L (136-145) 08/29/22 19:00 Potassium 3.6 mmol/L (3.5-5.1) 08/29/22 19:00 Chloride 98 mmol/L (98-107) 08/29/22 19:00 Carbon Dioxide 25 mmol/L (22-29) 08/29/22 19:00 Anion Gap 16.6 (5-19) 08/29/22 19:00 BUN 15 mg/dL (8-23) 08/29/22 19:00 Creatinine 0.7 mg/dL (0.5-0.9) 08/29/22 19:00 GFR Calculation 84.5 mL/min (90-130) L 08/29/22 19:00 Glucose 235 mg/dL (65-115) H 08/29/22 19:00 POC Glucose 232 mg/dL (70-110) H 08/29/22 19:06 Calculated Osmolality 290 mOsm/kg (285-295) 08/29/22 19:00 Calcium 9.3 mg/dL (8.5-10.5) 08/29/22 19:00 Total Bilirubin 0.4 mg/dL (0.15-1.2) 08/29/22 19:00 AST 11 U/L (0-32) 08/29/22 19:00 ALT 14 U/L (0-33) 08/29/22 19:00 Alkaline Phosphatase 86 U/L (35-105) 08/29/22 19:00 Troponin T Baseline 6 ng/L (0-10) 08/29/22 19:00 Total Protein 7.2 g/dL (6.6-8.7) 08/29/22 19:00 Albumin 4.0 g/dL (3.5-5.2) 08/29/22 19:00 Globulin 3.2 g/dL (1.3-4.6) 08/29/22 19:00 EKG Data EKG 1: I personally reviewed and interpreted this EKG as follows: EKG interpretation date: 08/29/22 EKG interpretation time: 19:02 Interpretation: nsr hr [address] or t wave abnormalities qrs 102 qtc 412 Discharge Plan Discharge Patient Disposition: Home Clinical Impression: Syncope Condition: Stable Prescriptions: No Action aspirin [Adult Aspirin Regimen] 81 mg tablet,delayed release (DR/EC) 81 mg PO DAILY (DME) blood-glucose meter Kit See Rx Instructions .ROUTE .MEDSUPPLY Qty: 1 0RF Rx Instructions: use to check blood sugar daily as directed clotrimazole-betamethasone 1-0.05 % cream 1 applic topical BID Qty: 15 0RF metoclopramide HCl [Reglan] 10 mg tablet 10 mg PO Q6H 7 Days Qty: 28 0RF fluticasone propionate [Flonase Allergy Relief] 50 mcg/actuation spray,suspension 2 spray intranasal DAILY Qty: 16 0RF Rx Instructions: administer into each nostril cholecalciferol (vitamin D3) PO DAILY (DME) FreeStyle Marivel 2 Sensor Kit See Rx Instructions .Route Qty: 1 0RF Rx Instructions: As directed, apply sensor, replace in 14 days. omega-3 fatty acids 1,000 mg capsule 1,000 mg PO DAILY Qty: 90 0RF epinephrine [EpiPen] 0.3 mg/0.3 mL auto-injector 0.3 mg IM ONCE PRN (Reason: anaphylaxis) Qty: 2 1RF (DME) Blood Glucose Test Strip See Rx Instructions .ROUTE .MEDSUPPLY Qty: 100 4RF Rx Instructions: check blood sugar daily as directed nystatin 100,000 unit/gram cream 1 applic topical BID Qty: 30 0RF levothyroxine 112 mcg tablet 112 mcg PO DAILY Qty: 30 5RF ropinirole 0.5 mg tablet 0.5 mg PO .qhs PRN (Reason: leg cramps) Qty: 30 5RF amlodipine 10 mg tablet See Rx Instructions .ROUTE .COMPLEX Qty: 90 1RF Dose Instruction: TAKE 1 TABLET BY MOUTH DAILY Rx Instructions: TAKE 1 TABLET BY MOUTH DAILY Jardiance 25 mg tablet 25 mg PO QAM Qty: 90 1RF atorvastatin 10 mg tablet 10 mg PO DAILY Qty: 90 1RF potassium chloride 20 mEq tablet,ER particles/crystals See Rx Instructions .ROUTE .COMPLEX Qty: 90 1RF Dose Instruction: TAKE 1 BY MOUTH ONCE DAILY . APPOINTMENT REQUIRED FOR FUTURE REFILLS Rx Instructions: TAKE 1 BY MOUTH ONCE DAILY . lisinopril 20 mg tablet See Rx Instructions .ROUTE .COMPLEX Qty: 90 1RF Dose Instruction: TAKE 1 TABLET BY MOUTH ONCE DAILY . APPOINTMENT REQUIRED FOR FUTURE REFILLS Rx Instructions: TAKE 1 TABLET BY MOUTH ONCE DAILY . metformin 1,000 mg tablet See Rx Instructions .ROUTE .COMPLEX Qty: 180 0RF Dose Instruction: Take 1 tablet by mouth twice daily Rx Instructions: Take 1 tablet by mouth twice daily glyburide 5 mg tablet 5 mg PO BID 90 Days Qty: 180 0RF Claritin 10 mg tablet,chewable 10 mg PO DAILY Qty: 90 1RF Discharge Orders: Discharge ED (Routine); Ordered 08/29/22 Ordered By: Aidan Quarles Referrals: Dontrell Peñaloza MD [Primary Care Provider] - 1-3 days Discharge Diet: Advance as tolerated Discharge Activity: Resume usual activity Patient Instructions: Syncope (ED) Coding Level of Care Code ED Email Administrator for Sherg Fwd Exam Comprehensive
[2022-08-29 18:56] VITALS: PULSE 76; RESP 16; O2SAT 90
[2022-08-29 19:05] LABS: Basophils % 0.1 %; Hemoglobin 11.7 g/dL (11.5-15.3); Lymphocytes # 0.6 10^3/uL (0.8-4.8); Lymphocytes % 4.2 %; Mean Corpuscular HGB Conc 31.6 g/dL (30.0-36.0); Mean Corpuscular Hemoglobin 25.8 pg (28.0-34.0); Mean Corpuscular Volume 81.5 fl (81-99); Mean Platelet Volume 9.1 fL (7.4-10.4); Monocytes # 0.5 10^3/uL (0.2-0.9); Monocytes % 3.1 %; Neutrophils # 13.51 10^3/uL (1.8-7.7); Neutrophils % 92.3 %; Nucleated Red Blood Cells % 0 %; Platelet Count 384 10^3/cmm (130-400); Red Blood Count 4.54 10^6/uL (4.1-5.3); Red Cell Distribution Width 14.9 % (12.1-15.1); White Blood Count 14.6 10^3/uL (4.0-10.0)
[2022-08-29 19:10] LABS: Glucose Point of Care 232 mg/dL (70-110)
[2022-08-29] MEDS: sodium chloride 0.9% 1,000 ML 999 ML IV (19:10)
[2022-08-29 19:24] LABS: Troponin(5th) Baseline 6 ng/L (0-10)
[2022-08-29 19:32] LABS: Alanine Aminotransferase 14 U/L (0-33); Alkaline Phosphatase 86 U/L (35-105); Anion Gap 16.6 (5-19); Aspartate Amino Transferase 11 U/L (0-32); Blood Urea Nitrogen 15 mg/dL (8-23); Calcium 9.3 mg/dL (8.5-10.5); Carbon Dioxide 25 mmol/L (22-29); Chloride 98 mmol/L (98-107); Globulin 3.2 g/dL (1.3-4.6); Glomerular Filtration Rate 84.5 mL/min (90-130); Glucose 235 mg/dL (65-115); Osmolality Calculated 290 mOsm/kg (285-295); Potassium 3.6 mmol/L (3.5-5.1); Sodium 136 mmol/L (136-145); Total Bilirubin 0.4 mg/dL (0.15-1.2); Total Protein 7.2 g/dL (6.6-8.7)
[2022-08-29 20:18] VITALS: BP 138/90; PULSE 78; RESP 18; O2SAT 94
== END 2022-08-29 20:20 | disposition home or self-care (01) ==
PROVIDERS: Emergency Provider Emergency Medicine; PCP Family Medicine Adult Medicine
DX: R55 Syncope and collapse (principal); Z79.82 Long term (current) use of aspirin; Z79.84 Long term (current) use of oral hypoglycemic drugs; E78.2 Mixed hyperlipidemia; I10 Essential (primary) hypertension; Z87.891 Personal history of nicotine dependence
CPT/HCPCS: 36416; 71045; 80053; 82962; 84484; 85025; 93005; 96360; 99285; J7030

== ENCOUNTER → 2022-08-30 10:35 | Outpatient (BNVA) | payer OTHER, SELFPAY | PROVIDERS: PCP Family Medicine Adult Medicine; Visit Provider Family Medicine Adult Medicine | DX: E03.9 Hypothyroidism, unspecified (principal) | CPT/HCPCS: 84443 ==

== ENCOUNTER → 2022-11-13 08:01 | Outpatient (BNVA) | payer OTHER, SELFPAY | PROVIDERS: PCP Family Medicine Adult Medicine; Visit Provider Family Medicine Adult Medicine | DX: E11.9 Type 2 diabetes mellitus without complications (principal); Z79.84 Long term (current) use of oral hypoglycemic drugs | CPT/HCPCS: 83036 ==

== ENCOUNTER 2022-12-25 07:52 | Outpatient (CLI) | payer OTHER, SELFPAY ==
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
== END 2022-12-25 07:53 | disposition home or self-care (01) ==
LOC: RAD 07:53
PROVIDERS: PCP Family Medicine Adult Medicine; Visit Provider Family Medicine Adult Medicine
DX: M79.18 Myalgia, other site (principal); R06.02 Shortness of breath; J98.11 Atelectasis
CPT/HCPCS: 71046; 71100

== ENCOUNTER → 2022-12-26 06:57 | Outpatient (BNVA) | payer OTHER, SELFPAY | PROVIDERS: PCP Family Medicine Adult Medicine; Visit Provider Family Medicine Adult Medicine | DX: M79.18 Myalgia, other site (principal); R31.9 Hematuria, unspecified; I10 Essential (primary) hypertension; R10.9 Unspecified abdominal pain | CPT/HCPCS: 80053; 81000; 85025 ==

== ENCOUNTER 2022-12-29 14:11 | Emergency (ER) | payer OTHER, SELFPAY ==
[2022-12-29 14:16] VITALS: BP 122/80; PULSE 87; TEMP 36.6; O2SAT 96; BMI 24.0
--- NOTE | 2022-12-29 14:30 | XRR_ITS ---
PROCEDURE INFORMATION: Exam: XR Chest Exam date and time: 12/29/2022 2:47 PM Age: 62 years old Clinical indication: Sternal or substernal pain; Additional info: Abdominal pain, nausea vomiting TECHNIQUE: Imaging protocol: Radiologic exam of the chest. Views: 1 view. COMPARISON: CR XR chest 2V* [id number] 12/25/2022 8:29 AM FINDINGS: Lungs: No consolidation. Pleural spaces: No pleural effusion. No pneumothorax. Heart/Mediastinum: No cardiomegaly. Bones/joints: Visualized osseous structures are intact. XR/XR chest 1V portable [id number] IMPRESSION: No acute findings.
--- NOTE | 2022-12-29 14:30 | CTR_ITS ---
PROCEDURE INFORMATION: Exam: CT Abdomen And Pelvis With Contrast Exam date and time: 12/29/2022 3:47 PM Age: 62 years old Clinical indication: Abdominal pain; Localized; Lower; Prior surgery; Surgery type: Frida; Appy; Hyst; Additional info: Abdominal pain, abdominal distention TECHNIQUE: Imaging protocol: Computed tomography of the abdomen and pelvis with contrast. Radiation optimization: All CT scans at this facility use at least one of these dose optimization techniques: automated exposure control; mA and/or kV adjustment per patient size (includes targeted exams where dose is matched to clinical indication); or iterative reconstruction. Contrast material: OMNI 350; Contrast volume: 75 ml; Contrast route: INTRAVENOUS (IV); REPORTING DATA: Count of CT and Cardiac NM exams in prior 12 months: This patient has received 0 known CTs and 0 known cardiac nuclear medicine studies in the 12 months prior to the current study. COMPARISON: CT abdomen pelvis w con* [id number] 07/24/2020 4:44 PM RADIATION DOSE METRICS: Total DLP (mGy-cm): 415.55 FINDINGS: Lungs: Streaky consolidation at the lung bases likely representing scarring and or atelectasis. Small noncalcified nodular densities are present at the lung bases the larger of which measures 3 mm in the right middle lobe at the right lung base. Liver: There are innumerable heterogeneously enhancing hepatic lesions consistent with metastatic disease. Gallbladder and bile ducts: The gallbladder has been removed. Pancreas: There is a heterogeneous mass in the pancreatic tail measuring 5.1 by 0.2 cm in the transverse/AP dimensions likely representing pancreatic carcinoma. Spleen: The spleen is mildly enlarged measuring 12.7 cm. Adrenal glands: Normal. No mass. Kidneys and ureters: There are sub cm cysts with benign features in the kidneys. Follow-up is not necessary for these lesions. Stomach and bowel: Colonic constipation is present. There is mucosal thickening of the stomach and duodenum. Appendix: There has been an appendectomy. Intraperitoneal space: There is a small to moderate amount of free intraperitoneal fluid in the abdomen/pelvis. Vasculature: Unremarkable. No abdominal aortic aneurysm. Lymph nodes: There is mesenteric and retroperitoneal lymphadenopathy. Urinary bladder: Unremarkable as visualized. Reproductive: The uterus is not visualized, consistent with hysterectomy. The uterus is not visualized, consistent with hysterectomy. Bones/joints: There is a transitional lumbosacral vertebra designated S1 for the purposes of this study. There is a rudimentary S1-S2 intervertebral disc.Chronic defects are present through the bilateral L5 pars interarticularis. Grade 1 spondylolisthesis at L5-S1 with moderate bilateral neural foraminal narrowing. Soft tissues: There is mild edema in the subcutaneous soft tissues surrounding the abdomen and pelvis. CT/CT abdomen pelvis w con* [id number] IMPRESSION: 1. Heterogeneous mass in the pancreatic tail consistent with pancreatic carcinoma. 2. Hepatic metastatic disease. 3. There is mesenteric and retroperitoneal lymphadenopathy. 4. There is mucosal thickening of the stomach and duodenum. This may represent nonspecific gastritis/enteritis. Follow-up to exclude neoplasm as clinically warranted. 5. Colonic constipation is present. COMMENTS: Consistent with the [employer]'s Incidental Findings Committee white paper (J Am Pete Radiol 2018): Any incidental renal lesion less than 1 cm or classified as too small to characterize, or any incidental cystic renal lesion characterized as simple-appearing, is likely benign. No follow-up imaging is recommended for these lesions per consensus recommendations based on imaging criteria.
--- NOTE | 2022-12-29 14:33 | ECG_ITS ---
[facility] Test Date: 2022-12-29 Pat Name: Lou Garcia Department: Room: Gender: Female Legal Technician: : 1960 Requested By: Donald Quinones Order Number: [id number] Mohit MD: Dmitry Felipe M.D. Measurements Intervals [place] Rate: 79 P: 27 FL: 188 QRS: 18 QRSD: 100 T: 19 QT: 380 QTc: 437 Interpretive Statements SINUS RHYTHM Compared to ECG 08/29/2022 19:02:18 No significant changes Electronically Signed On 12-30-2022 11:50:26 CDT by Dmitry Felipe M.D. [email or web address] for women [email or web address] Apps ([id number]
[2022-12-29 14:50] LABS: Basophils % 0.1 %; Hematocrit 33.2 % (37.0-47.0); Lymphocytes # 0.8 10^3/uL (0.8-4.8); Lymphocytes % 4.7 %; Mean Corpuscular HGB Conc 30.1 g/dL (30.0-36.0); Mean Corpuscular Hemoglobin 22.4 pg (28.0-34.0); Mean Corpuscular Volume 74.3 fl (81-99); Mean Platelet Volume 9.7 fL (7.4-10.4); Monocytes # 1.5 10^3/uL (0.2-0.9); Monocytes % 8.6 %; Neutrophils # 14.98 10^3/uL (1.8-7.7); Neutrophils % 85.6 %; Nucleated Red Blood Cells % 0 %; Platelet Count 296 10^3/cmm (130-400); Red Blood Count 4.47 10^6/uL (4.1-5.3); Red Cell Distribution Width 18.5 % (12.1-15.1); White Blood Count 17.5 10^3/uL (4.0-10.0)
[2022-12-29 14:57] VITALS: RESP 14; O2SAT 96
[2022-12-29] MEDS: sodium chloride 0.9% 1,000 ML 999 ML IV (14:57)
[2022-12-29] MEDS: HYDROmorphone 1 mg/mL INJ 1 mL 0.5 MG IVP (14:57)
[2022-12-29] MEDS: ondansetron 2 mg/ML SDV 2 mL 4 MG IVP (14:59)
[2022-12-29 15:05] LABS: Alanine Aminotransferase 25 U/L (0-33); Alkaline Phosphatase 644 U/L (35-105); Aspartate Amino Transferase 54 U/L (0-32); Blood Urea Nitrogen 13 mg/dL (8-23); Calcium 8.4 mg/dL (8.5-10.5); Carbon Dioxide 23 mmol/L (22-29); Chloride 93 mmol/L (98-107); Globulin 2.8 g/dL (1.3-4.6); Glomerular Filtration Rate 161.2 mL/min (90-130); Glucose 162 mg/dL (65-115); Lipase 12 U/L (13-60); Osmolality Calculated 274 mOsm/kg (285-295); Sodium 130 mmol/L (136-145); Total Bilirubin 1.1 mg/dL (0.15-1.2); Total Protein 5.8 g/dL (6.6-8.7)
[2022-12-29 15:06] LABS: Alcohol Level < 10 mg/dL (0-10)
[2022-12-29 15:07] LABS: Anion Gap 18.6 (5-19); Lactate (Lactic Acid level) 2.7 mmol/L (0.5-2.2); Potassium 4.6 mmol/L (3.5-5.1); Troponin(5th) Baseline 11 ng/L (0-10)
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
[2022-12-29 15:49] LABS: Ammonia 59 umol/L (11-51)
[2022-12-29] MEDS: iohexol 350 mg/mL 500 mL Btl (per mL) IV (15:54)
[2022-12-29 16:21] LABS: Hepatitis A Antibody IgM Non-Reactive (Nonreactive); Hepatitis B Core IgM Non-Reactive (Nonreactive); Hepatitis B Surface Antigen Non-Reactive (Nonreactive); Hepatitis C Virus Antibody Non-Reactive (Nonreactive)
[2022-12-29 16:39] LABS: INR 1.21 (0.8-1.2)
[2022-12-29 17:00] LABS: Add Urine Microscopic? NO; Charge for UA Resulting for Rev
[2022-12-29 17:05] LABS: Bilirubin Urine Neg (Negative); Blood Urine Neg (Negative); Glucose Urine UA 4+ (Normal); Ketones Urine Negative (Negative); Leukocyte Esterase Urine Negative (Negative); Nitrate Urine Negative (Negative); Protein Urine Neg (Negative); Specific Gravity, Urine 1.005 (1.005-1.030); Urine Appearance Clear (CLEAR); Urine Color Straw (Yellow); Urobilinogen Urine 1 mg/dL (Negative); pH Urine 5 (5-7)
[2022-12-29 17:12] LABS: Amphetamines Screen Urine Negative (Negative); Barbiturates Screen Urine Negative (Negative); Benzodiazepines Screen Urine Negative (Negative); Cocaine Screen Urine Negative (Negative); Opiate Screen Urine Positive (Negative); PCP Screen Urine Negative (Negative); THC Screen Urine Negative (Negative)
[2022-12-29 18:23] VITALS: RESP 14
--- NOTE | 2022-12-31 08:31 | DCPLANNER ---
Addendum entered by Manasa Abarca 01/03/23 07:42: Patient had a follow up appointment scheduled with Dr. Sterling at oncology - patient did attend appointment. Original Note: it security manager had message to refer patient to oncology or hospice. it security manager sent patients information to Evelin at oncology for follow up. Patients information will be printed and reviewed. Clinic will call patient with appointment information.
== END 2022-12-29 18:25 | disposition home or self-care (01) ==
PROVIDERS: Emergency Provider Nurse Practitioner; PCP Family Medicine Adult Medicine
DX: C25.9 Malignant neoplasm of pancreas, unspecified (principal); C78.7 Secondary malignant neoplasm of liver and intrahepatic bile duct; D72.829 Elevated white blood cell count, unspecified; E87.8 Other disorders of electrolyte and fluid balance, not elsewhere classified; D68.8 Other specified coagulation defects; Z79.82 Long term (current) use of aspirin; Z79.84 Long term (current) use of oral hypoglycemic drugs; Z87.891 Personal history of nicotine dependence; I10 Essential (primary) hypertension; E78.2 Mixed hyperlipidemia
CPT/HCPCS: 36415; 71045; 74177; 80053; 80074; 80306; 80307; 81003; 82140; 83605; 83690; 84484; 85025; 85610; 93005; 96374; 96375; 99285; J1170; J2405; J7030; Q9967

== ENCOUNTER 2023-01-02 15:57 | Oncology outpatient (recurring) (ONCR) | payer OTHER, SELFPAY | END 2023-01-13 23:59 | disposition home or self-care (01) | PROVIDERS: PCP Family Medicine Adult Medicine; Visit Provider Internal Medicine Medical Oncology | DX: Z53.9 Procedure and treatment not carried out, unspecified reason (principal) ==

== ENCOUNTER 2023-01-04 10:20 | Outpatient (CLI) | payer OTHER, SELFPAY ==
[2023-01-03 13:51] VITALS: BMI 24.4
[2023-01-04] VITALS (7 sets, daily range): BP systolic 106–118; BP diastolic 69–75; PULSE 72–81; RESP 16–18; TEMP 36.3–36.4; O2SAT 92–98
[2023-01-04] MEDS: sodium chloride 0.9% 1,000 ML 30 ML IV (11:43)
[2023-01-04 12:07] LABS: INR 1.35 (0.8-1.2)
--- NOTE | 2023-01-04 13:00 | US_ITS ---
WS: [id number] ULTRASOUND-GUIDED LIVER BIOPSY INDICATION: Numerous liver lesions. Pancreatic mass on CT. TECHNIQUE: Conscious sedation in the GI lab was utilized. Timeout was performed. The procedure including risks, benefits, and complications were discussed with the patient who agreed to proceed. A timeout was performed. Using sterile technique patient was prepped and draped in usual sterile fashion. After conscious sedation, and 1% lidocaine, a liver lesion in the anterior liver pa renchyma was selected. Approximately 8-9 18-gauge biopsies were obtained. No immediate complications. Ultrasound images at 10 minutes post biopsy demonstrate small amount of expected hemorrhage and bloo d products along the biopsy site and biopsy tract. Small amount of subcutaneous edema. No other suspi cious findings. US/US biopsy liver [id number] IMPRESSION: Uncomplicated ultrasound-guided liver biopsy. Pathology is pending.
[2023-01-04] MEDS: midazolam 1 mg/mL INJ 2 mL 2 MG IVP (13:30)
[2023-01-04] MEDS: midazolam 1 mg/mL INJ 2 mL IVP (13:38)
[2023-01-04] MEDS: fentaNYL 50 mcg/mL INJ 2mL 25 MCG IVP (13:38)
== END 2023-01-04 14:46 | disposition home or self-care (01) ==
PROVIDERS: PCP Family Medicine Adult Medicine; Visit Provider Internal Medicine Medical Oncology
DX: C25.2 Malignant neoplasm of tail of pancreas (principal); C78.7 Secondary malignant neoplasm of liver and intrahepatic bile duct
CPT/HCPCS: 36415; 47000; 76942; 85610; 88307; 88342; 96374; 96375; J2250; J3010; J7030

== ENCOUNTER 2023-01-10 10:02 | Emergency (ER) | payer OTHER, SELFPAY ==
[2023-01-10 10:14] VITALS: BP 104/66; PULSE 85; RESP 16; TEMP 36.5; O2SAT 97; BMI 24.4
--- NOTE | 2023-01-10 10:48 | XR_ITS ---
WS: [id number] Exam: XR chest 1V portable [id number] Date/Time of Exam: 01/10/2023 11:03 AM Reason For Exam: leg swelling Comparison 12/29/2022. The lungs are fully expanded and clear. Unremarkable cardiomediastinal silhouette. Plaque atelectasis in the left base. No pleural effusion. Bony structures are intact. XR/XR chest 1V portable [id number] IMPRESSION: 1. No acute cardiopulmonary finding.
--- NOTE | 2023-01-10 10:59 | ECG_ITS ---
[facility] Test Date: 2023-01-10 Pat Name: Lou Garcia Department: Room: Gender: Female Ore Feeder: : 1960 Requested By: Severiano Salinas Order Number: [id number] Mohit MD: Harry Lane M.D. Measurements Intervals [place] Rate: 84 P: -28 MT: 177 QRS: -28 QRSD: 101 T: 0 QT: 361 QTc: 427 Interpretive Statements SINUS RHYTHM POSSIBLE ANTERIOR MYOCARDIAL INFARCTION , OF INDETERMINATE AGE [30 ms Q WAVE IN V3/V4, OR R < 0.2 mV IN V4] Compared to ECG 12/29/2022 14:40:52 Myocardial infarct finding now present Electronically Signed On 01-10-2023 16:14:[address] M.D. [email or web address]
[2023-01-10 11:42] LABS: Basophils % 0.2 %; Hematocrit 40.5 % (37.0-47.0); Lymphocytes # 0.6 10^3/uL (0.8-4.8); Lymphocytes % 2.8 %; Mean Corpuscular HGB Conc 29.6 g/dL (30.0-36.0); Mean Corpuscular Hemoglobin 21.8 pg (28.0-34.0); Mean Corpuscular Volume 73.6 fl (81-99); Mean Platelet Volume 9.8 fL (7.4-10.4); Monocytes # 1.4 10^3/uL (0.2-0.9); Monocytes % 6.4 %; Neutrophils # 19.23 10^3/uL (1.8-7.7); Neutrophils % 89.8 %; Nucleated Red Blood Cells % 0 %; Platelet Count 275 10^3/cmm (130-400); Red Cell Distribution Width 20.3 % (12.1-15.1); White Blood Count 21.4 10^3/uL (4.0-10.0)
--- NOTE | 2023-01-10 11:43 | ED_ITS ---
HPI - Weakness General: Chief complaint: Weakness Stated complaint: leg swelling with flood, sent from Time Seen by Provider: 01/10/23 11:24 Source: patient Mode of arrival: wheelchair History of Present Illness: 59-year-old female was recently diagnosed with a pancreatic mass which did come back on biopsies pancreatic adeno CA. She has extensive metastasis involvement of the liver. At this point she has not initiated any treatment she comes and has severe abdominal pain. She also very jaundiced in appearance not been able to eat or drink at home. She has seen oncology already they felt that there was no treatment options and recommended comfort cares. Allotted she is at home has not been adequate for pain control MD Complaint: generalized weakness Onset (ago): minute(s) Duration: constant Severity: severe Relieving factors: none Exacerbating factors: none Associated symptoms: Reports nausea; Denies chest pain, chills, confusion, melena, decreased appetite, diaphoresis, dysuria, easy bruising, fever(s), headache(s), myalgias, rash, short of breath, syncope or vomiting Review of Systems Const: Denies: fever(s), chills, fatigue, malaise or diaphoresis ENMT: Denies: throat pain, ear or mastoid pain, nasal discharge or nasal congestion Card: Denies: chest pain or syncope Resp: Denies: dyspnea, productive cough or non-productive cough GI: Reports: abdominal pain and nausea; Denies: vomiting or melena : Denies: dysuria Skin/Breast: Denies: rash or pruritus Neuro: Denies: headache(s) or confusion Greg/Lymph: Denies: easy bruising PFSH ED PFSH: Medical History Allergic to bees Hyperlipidemia Hypertension Hypothyroidism Mixed hyperlipidemia Nocturnal leg cramps Pancreatic cancer PUD (peptic ulcer disease) Gastric and peptic ulcer 05/05/2020. Type 2 diabetes mellitus Surgical History History of bilateral oophorectomy History of cholecystectomy History of hysterectomy History of tubal ligation Family History Mother Diabetes Heart disease Father Diabetes Heart disease Social History : has quit using tobacco Year quit tobacco: 1999 Former quit date comment: smoked ppd x 5 Second hand smoke exposure: No Alcohol intake: former Substance/Drug Use: never Lives independently: Yes Household members: spouse Marital status: service: No Current occupational status: employed Current occupation: [employer] Current gender identity: Female Physical Exam Const: GENERAL APPEARANCE: cooperative ORIENTATION/CONSCIOUSNESS: Yes awake, Yes oriented to person, Yes oriented to place and Yes oriented to time HENMT: COMMON NORMALS: normocephalic, atraumatic and hearing grossly normal bilaterally HEAD & SCALP: normocephalic and atraumatic Resp: COMMON NORMALS: normal respiratory effort, No retractions, No use of accessory muscles and clear to auscultation bilaterally AUSCULTATION: clear to auscultation bilaterally Cardio: COMMON NORMALS: regular rate, regular rhythm and No murmurs present (Cardio) RATE: regular rate RHYTHM: regular rhythm GI: COMMON NORMALS: No hepatosplenomegaly present AUSCULTATION: Yes normoactive bowel sounds PALPATION: Yes Tenderness to palpation present (GI), No Guarding due to palpation present (GI) and Yes No hepatosplenomegaly present Extremity: COMMON NORMALS: normal to inspection, capillary refill normal, no clubbing, cyanosis or edema, no calf tenderness and no pedal edema Neuro: SENSORIUM/ORIENTATION: Yes oriented to person, Yes oriented to place and Yes oriented to time Skin: COMMON NORMALS: no rashes or lesions noted GENERAL SKIN EXAM: no rashes or lesions noted Course Vital Signs: Vital signs: Vital Signs Temperature 97.7 F 01/10/23 10:14 Pulse Rate 85 01/10/23 10:14 Respiratory Rate 16 01/10/23 10:14 Blood Pressure 104/66 01/10/23 10:14 Pulse Oximetry 97 01/10/23 10:14 Oxygen Delivery Me thod Room Air 01/10/23 10:14 MDM - Weakness Medical Decision Making Further elevation of her liver enzymes she is now jaundiced with icteric sclera and T. bili is climbed to 3.1. Discussed with oncology Dr. Sterling he agrees comfort cares enrollment in hospice is the best option at this point. Patient was given pain medication fluids here she did have some improvement of her symptoms discussed with her and her they like to proceed with hospice as well she will be discharged home hospice will meet her in the home. Medical Records I reviewed the patient's medical records. Lab Data I reviewed the patient's lab results. 01/10/23 11:30 01/10/23 11:30 Radiology Impressions Chest X-Ray 01/10/23 10:48 IMPRESSION: 1. No acute cardiopulmonary finding. Laboratory Results WBC 21.4 10^3/uL (4.0-10.0) H 01/10/23 11:30 RBC 5.50 10^6/uL (4.1-5.3) H 01/10/23 11:30 Hgb 12.0 g/dL (11.5-15.3) 01/10/23 11:30 Hct 40.5 % (37.0-47.0) 01/10/23 11:30 MCV 73.6 fl (81-99) L 01/10/23 11:30 MCH 21.8 pg (28.0-34.0) L 01/10/23 11:30 MCHC 29.6 g/dL (30.0-36.0) L 01/10/23 11:30 RDW 20.3 % (12.1-15.1) H 01/10/23 11:30 Plt Count 275 10^3/cmm (130-400) 01/10/23 11:30 MPV 9.8 fL (7.4-10.4) 01/10/23 11:30 Neut % (Auto) 89.8 % 01/10/23 11:30 Lymph % (Auto) 2.8 % 01/10/23 11:30 [place] % (Auto) 6.4 % 01/10/23 11:30 Eos % (Auto) 0.0 % 01/10/23 11:30 Baso % (Auto) 0.2 % 01/10/23 11:30 Neut # (Auto) 19.23 10^3/uL (1.8-7.7) H 01/10/23 11:30 Lymph # (Auto) 0.6 10^3/uL (0.8-4.8) L 01/10/23 11:30 [place] # (Auto) 1.4 10^3/uL (0.2-0.9) H 01/10/23 11:30 Eos # (Auto) 0.0 10^3/uL (0.0-0.8) 01/10/23 11:30 Baso # (Auto) 0.0 10^3/uL (0.0-0.1) 01/10/23 11:30 Nucleated RBC % (auto) 0 % 01/10/23 11:30 Nucleated RBCs # 0.0 /100WBC 01/10/23 11:30 Sodium 134 mmol/L (136-145) L 01/10/23 11:30 Potassium 5.4 mmol/L (3.5-5.1) H 01/10/23 11:30 Chloride 96 mmol/L (98-107) L 01/10/23 11:30 Carbon Dioxide 21 mmol/L (22-29) L 01/10/23 11:30 Anion Gap 22.4 (5-19) H 01/10/23 11:30 BUN 26 mg/dL (8-23) H 01/10/23 11:30 Creatinine 0.7 mg/dL (0.5-0.9) 01/10/23 11:30 GFR Calculation 84.5 mL/min (90-130) L 01/10/23 11:30 Glucose 101 mg/dL (65-115) 01/10/23 11:30 Calculated Osmolality 283 mOsm/kg (285-295) L 01/10/23 11:30 Calcium 9.2 mg/dL (8.5-10.5) 01/10/23 11:30 Total Bilirubin 3.1 mg/dL (0.15-1.2) H 01/10/23 11:30 AST 97 U/L (0-32) H 01/10/23 11:30 ALT 46 U/L (0-33) H 01/10/23 11:30 Alkaline Phosphatase 969 U/L (35-105) H 01/10/23 11:30 NT-Pro-B Natriuret Pep 2502 pg/mL (0-125) H 01/10/23 11:30 Total Protein 6.9 g/dL (6.6-8.7) 01/10/23 11:30 Albumin 3.3 g/dL (3.5-5.2) L 01/10/23 11:30 Globulin 3.6 g/dL (1.3-4.6) 01/10/23 11:30 Lipase 7 U/L (13-60) L 01/10/23 11:30 Discharge Plan Discharge Patient Disposition: Home Clinical Impression: Malignant neoplasm of tail of pancreas, Secondary malignant neoplasm of liver and intrahepatic bile duct Condition: Stable Prescriptions: No Action aspirin [Adult Aspirin Regimen] 81 mg tablet,delayed release (DR/EC) 81 mg PO DAILY (DME) blood-glucose meter Kit See Rx Instructions .ROUTE .MEDSUPPLY Qty: 1 0RF Rx Instructions: use to check blood sugar daily as directed clotrimazole-betamethasone 1-0.05 % cream 1 applic topical BID PRN (Reason: Itching) (DME) FreeStyle Marivel 2 Sensor Kit See Rx Instructions .Route Qty: 1 0RF Rx Instructions: As directed, apply sensor, replace in 14 days. omega-3 fatty acids 1,000 mg capsule 1,000 mg PO DAILY Qty: 90 0RF epinephrine [EpiPen] 0.3 mg/0.3 mL auto-injector 0.3 mg IM ONCE PRN (Reason: anaphylaxis) Qty: 2 1RF (DME) Blood Glucose Test Strip See Rx Instructions .ROUTE .MEDSUPPLY Qty: 100 4RF Rx Instructions: check blood sugar daily as directed amlodipine 10 mg tablet 10 mg PO DAILY Rx Instructions: 10 mg daily; levothyroxine 112 mcg tablet 112 mcg PO DAILY Qty: 30 5RF glyburide 5 mg tablet 5 mg PO BID 90 Days Qty: 180 0RF atorvastatin 10 mg tablet 10 mg PO DAILY Qty: 90 1RF Jardiance 25 mg tablet 25 mg PO QAM Qty: 90 1RF hydromorphone [Dilaudid] 2 mg tablet 2 mg PO Q4H PRN (Reason: pain) 30 Days Qty: 60 0RF ondansetron 4 mg tablet,disintegrating 4 mg PO Q8H PRN (Reason: nausea and vomiting) Qty: 60 0RF lisinopril 20 mg tablet 20 mg PO DAILY potassium chloride 20 mEq tablet,ER particles/crystals 20 meq PO DAILY metformin 1,000 mg tablet 1,000 mg PO BID Vitamin D3 25 mcg (1,000 unit) Capsule 25 mcg PO DAILY Discharge Orders: Discharge ED (Routine); Ordered 01/10/23 Ordered By: Severiano Mendieta Referrals: Dontrell Peñaloza MD [Primary Care Provider] - Discharge Diet: Advance as tolerated Patient Instructions: Opioid Safety, Pain Management Activity Restrictions/Additional Instructions: You were seen today for abdominal pain your liver enzymes and bilirubin are increasing your white count is elevated. Discussed with your oncologist we are recommending that you enroll in hospice for comfort cares. Hospice will meet you at home to make arrangements. Coding Level of Care Code ED Hardware Sales Assistant for Abdelrahman Farias
[2023-01-10] MEDS: ondansetron 2 mg/ML SDV 2 mL 8 MG IVP (12:00)
[2023-01-10] MEDS: HYDROmorphone 1 mg/mL INJ 1 mL 0.5 MG IVP ×2 (12:02→13:12)
[2023-01-10] MEDS: sodium chloride 0.9% 1,000 ML 999 ML IV (12:03)
[2023-01-10 12:16] LABS: Alanine Aminotransferase 46 U/L (0-33); Albumin Level 3.3 g/dL (3.5-5.2); Alkaline Phosphatase 969 U/L (35-105); Anion Gap 22.4 (5-19); Aspartate Amino Transferase 97 U/L (0-32); Blood Urea Nitrogen 26 mg/dL (8-23); Calcium 9.2 mg/dL (8.5-10.5); Carbon Dioxide 21 mmol/L (22-29); Chloride 96 mmol/L (98-107); Globulin 3.6 g/dL (1.3-4.6); Glomerular Filtration Rate 84.5 mL/min (90-130); Glucose 101 mg/dL (65-115); NT Pro B Type Natriuretic Pept 2502 pg/mL (0-125); Osmolality Calculated 283 mOsm/kg (285-295); Potassium 5.4 mmol/L (3.5-5.1); Sodium 134 mmol/L (136-145); Total Bilirubin 3.1 mg/dL (0.15-1.2); Total Protein 6.9 g/dL (6.6-8.7)
[2023-01-10 12:21] LABS: Lipase 7 U/L (13-60)
--- NOTE | 2023-01-10 15:24 | DCPLANNER ---
technical manager was asked to speak with patient and her about starting hospice services. Patient and her stated that they would like to use [facility] hospice. technical manager called Diony at [facility] at Home and informed her of the referral. [facility] hospice will be in contact with the family after review of medical chart.
== END 2023-01-10 14:22 | disposition home or self-care (01) ==
PROVIDERS: Physician Assistant; Emergency Provider Family Medicine; PCP Family Medicine Adult Medicine
DX: C25.2 Malignant neoplasm of tail of pancreas (principal); C78.7 Secondary malignant neoplasm of liver and intrahepatic bile duct; Z79.82 Long term (current) use of aspirin; Z79.84 Long term (current) use of oral hypoglycemic drugs; Z87.891 Personal history of nicotine dependence; I10 Essential (primary) hypertension; E78.2 Mixed hyperlipidemia; E11.9 Type 2 diabetes mellitus without complications
CPT/HCPCS: 71045; 80053; 83690; 83880; 85025; 93005; 96361; 96374; 96375; 96376; 99285; J1170; J2405; J7030